=== PATIENT | male | born 1955 | race Caucasian/White ===

== ENCOUNTER 2016-10-06 23:50 | Emergency (ER) | payer MEDICARE, OTHER ==
[~2016-10-06 23:50] MED LIST: ASAB PO; AT10 PO; BUSPAR10 PO; CELEXA40 MG PO; CHANTIX0.5 PO; CO Q-10100 MG PO; DESONIDE0.05 % EX; DIABETA5 PO; DUONEB INH; FLEX PO; FOLTANX TABLET1 EACH PO; GLUCOPHAGE1000 MG PO; GLUCPH PO; HALF81 PO; HUMULIN R1 ML SC; HYT1 PO; INSPRA25 PO; L20 PO; LANTUS SC; LANTUSCART SC; LIPITOR20 PO; MAX25 PO; NAP500 PO; NASAREL29 MCG NAS; NEUR400 PO; NEUR600 PO; NIZORSHAM T; NOVOLOG SC; NOVOPEN SC; PLAVIX PO; PRAV10 PO; PRAVAC PO; PRAVACHOL40 MG PO; PRESERVISION A1 EAC1 PO; PRILOSEC10 MG PO; PRIN10 PO; PROAIR HFA INH; PROSCAR5 PO; REM15 PO; SPIRO50 PO; SYMLIN SC; SYMLIN0.6 MG/ML SC; SYMLINPEN 601000 MCG SC; TRAZ100 PO; TRAZ50 PO; TRAZODONE150 MG PO; TRULICITY SQ; VIT/HERBS; WELCHOL 625 MG625 MG OR; ZETIA PO; ZOL100 PO; ZYRTEC ALLGY10 MG PO
[2016-10-07 00:24] LABS: BASOPHILS 0.5 %; BASOPHILS ABSOLUTE 0.01 10/3/uL (0.0-0.16); EOSINOPHILS ABSOLUTE 0.11 10/3/uL (0.0-0.53); HEMATOCRIT 25.4 % (40.0-51.0); HEMOGLOBIN 7.3 g/dL (13.6-17.8); IMMATURE GRANULOCYTES 1.4 %; IMMATURE GRANULOCYTES ABSOLUTE 0.03 10/3/uL (0.0-0.11); LYMPHOCYTES 18.7 %; LYMPHOCYTES ABSOLUTE 0.41 10/3/uL (0.67-4.30); MEAN CORPUS HGB CONC 28.7 g/dL (32.0-36.0); MEAN CORPUSCULAR HEMOGLOB 21.5 pg (26.0-34.0); MEAN PLATELET VOLUME 9.6 fL (9.2-13.0); MONOCYTES 7.8 %; MONOCYTES ABSOLUTE 0.17 10/3/uL (0.21-1.20); NEUTROPHILS 66.6 %; NEUTROPHILS ABSOLUTE 1.46 10/3/uL (2.02-8.40); PLATELET COUNT 54 10/3/uL (150-400); RBC DISTRIBUTION WIDTH 16.3 % (12.0-16.0)
[2016-10-07 00:25] LABS: MEAN CORPUSCULAR VOLUME 74.7 fL (80-100); WHITE BLOOD CELLS 2.2 10/3/uL (4.5-10.5)
[2016-10-07 00:26] LABS: MANUAL DIFF NO %
[2016-10-07 00:33] LABS: INTERNATIONAL NORMAL RATI 1.4 UNITS (-); PARTIAL THROMBO TIME 38.1 SEC (22.5-37.2); PROTIME (NOT ORD) 17.3 SEC (12.0-14.5)
[2016-10-07 00:41] LABS: ELLIPTOCYTES 1+ (3-10/OIF) (0-2/OIF); POLYCHROMASIA 1+ (2-5/OIF) (0-1/OIF)
[2016-10-07 00:42] LABS: HYPOCHROMIA 1+ (3-10/OIF) (0-2/OIF); MICROCYTES 1+ (5-10/OIF) (0-5/OIF); PLATELET ESTIMATE DEC (ADEQUATE)
[2016-10-07 00:45] LABS: BUN (BLOOD UREA NITROGEN) 15 MG/DL (6-23); CALCIUM, SERUM 8.5 MG/DL (8.5-10.4); CHEST PAIN PROFILE TAT 0 Hrs 26 Mins; CHLORIDE, SERUM 106 MMOL/L (96-112); CO2 (CARBON DIOXIDE) 26 MMOL/L (24-34); GFR AFRICAN AMERICAN 93 ML/MIN (>=60); GFR NON AFRICAN AMERICAN 80 ML/MIN (>=60); GLUCOSE, SERUM 239 MG/DL (60-99); POTASSIUM, SERUM 4.1 MMOL/L (3.5-5.3); SODIUM, SERUM 142 MMOL/L (135-148); TROPONIN I 0.03 NG/ML (<0.05)
[2016-10-07 01:11] LABS: ASCORBIC ACID (UR NOT ORDER) 40 (NEG); BILIRUBIN, URINE NEGATIVE (NEG); ER URINALYSIS TAT 0 Hrs 02 Mins; KETONE, URINE TRACE MG/DL (NEG); LEUKOCYTE ESTERASE(NOT OR NEG (NEG); NITRITE (URINE) NEG (NEG); WBC (NOT ORDERED) (RFLEX) 1 (0-5)
== END 2016-10-07 01:38 | disposition home or self-care (01) ==
LOC: ER 23:50
PROVIDERS: Emergency Medicine
DX: J40 Bronchitis, not specified as acute or chronic (principal); I38 Endocarditis, valve unspecified; I10 Essential (primary) hypertension; J44.9 Chronic obstructive pulmonary disease, unspecified; E11.9 Type 2 diabetes mellitus without complications; F17.200 Nicotine dependence, unspecified, uncomplicated; Z79.4 Long term (current) use of insulin; Z79.82 Long term (current) use of aspirin
CPT/HCPCS: 71010; 80048; 81001; 83690; 83735; 84484; 85025; 85610; 85730; 93005; 99285; A9270-GY